=== PATIENT | female | born 1955 ===

== ENCOUNTER → 2022-12-14 10:48 | Outpatient (CLI) | payer SELFPAY ==
--- NOTE | ~2022-12-14 | XR_ITS ---
Clinical Indication: Abnormal IGRA test PA and lateral views of the chest: Comparison: None Findings: The lungs are clear, without evidence of focal consolidation or pleural effusion. Cardiome diastinal silhouette is within normal limits. Bones and soft tissues are unremarkable. Impression: Normal chest. Reviewed, dictated and finalized at [facility]. Impression: Normal chest.
== END ==
DX: R76.11 Nonspecific reaction to tuberculin skin test without active tuberculosis (principal)
CPT/HCPCS: 71046